=== PATIENT | male | born 1985 | race Caucasian/White ===

== ENCOUNTER 2019-06-15 18:50 | Emergency (ER) | payer SELFPAY ==
[~2019-06-15] VITALS: Ht 172.7 cm; Wt 78.9 kg
[2019-06-15 19:20] VITALS: Ht 172.7 cm; Wt 78.9 kg
[2019-06-15 19:58] VITALS: BP 146/95
== END 2019-06-15 19:58 | disposition home or self-care (01) ==
LOC: ED 18:50
DX: B34.9 Viral infection, unspecified (principal)